=== PATIENT | female | born 1955 | race Caucasian/White ===

== ENCOUNTER 2016-10-29 13:28 | Day surgery (SDC) | payer BC ==
[~2016-10-29] VITALS: Ht 157.5 cm; Wt 52.2 kg
[~2016-10-29 13:28] MED LIST: ADVIL,NUPRIN,M200 MG PO; ATIVAN2 MG PO; CALCIUM + D3 E1 EACH PO; CENTRUM SILVER1 EAC4 PO; MAGNESIUM OXID500 MG PO; PROZAC40 MG PO; VICOPROFEN1 TABLET PO; VITAMIN C1000 MG PO
== END 2016-10-29 16:25 | disposition home or self-care (01) ==
LOC: PAIN 13:28 → SDC 14:00 → PAIN 14:00
DX: M47.896 Other spondylosis, lumbar region (principal); M51.36 Other intervertebral disc degeneration, lumbar region; F41.1 Generalized anxiety disorder; M54.5 Low back pain
CPT/HCPCS: J1030; J2250; J3010

== ENCOUNTER 2017-01-07 09:22 | Inpatient (IN) | payer BC ==
[~2017-01-07] VITALS: Ht 154.9 cm; Wt 63.0 kg
[~2017-01-07 09:22] MED LIST changes: +ATIVAN1 MG PO; +IBUPROFEN400 MG PO; +TYLENOL EXTRA500 MG PO
[2017-01-07 13:00] VITALS: BP 125/82
[2017-01-07 20:00] VITALS: BP 104/67
[2017-01-08 00:07] VITALS: BP 104/70
[2017-01-08 04:26] VITALS: BP 98/65
[2017-01-08 05:50] LABS: HEMATOCRIT 35.4 % (36.0-46.0); MCV 95.7 FL (83-99)
[2017-01-08 08:17] VITALS: BP 124/76
[2017-01-08 11:53] VITALS: BP 127/80
== END 2017-01-08 12:53 | disposition home or self-care (01) | DRG 483 ==
LOC: 2SOUTH 09:22 → 3EAST 19:51
PROVIDERS: Orthopaedic Surgery
PROC: 0RRK0J6 Replacement of Left Shoulder Joint with Synthetic Substitute, Humeral Surface, Open Approach (ICD-10-PCS; principal; 2017-01-07)
DX: M19.012 Primary osteoarthritis, left shoulder (principal); F17.210 Nicotine dependence, cigarettes, uncomplicated; J98.11 Atelectasis; M47.897 Other spondylosis, lumbosacral region; G89.4 Chronic pain syndrome; F32.9 Major depressive disorder, single episode, unspecified; G43.909 Migraine, unspecified, not intractable, without status migrainosus; K75.9 Inflammatory liver disease, unspecified
CPT/HCPCS: 85014; 85018; 86900; 86901; J0330; J0690; J1100; J2250; J2370; J2405; J2795; J3010; J7030; J7050